=== PATIENT | female | born 1945 | race Caucasian/White ===

== ENCOUNTER 2018-08-03 22:11 | Emergency (ER) | payer MEDICARE, OTHER ==
[~2018-08-03] VITALS: Ht 165.1 cm; Wt 79.7 kg
[~2018-08-03 22:11] MED LIST: ASPI-496 PO; CEFD300C37 PO; CRESTOR; FURO20TA3 PO; FURO40SO5 PO; GABA-826 PO; GABA300C10 PO; GABAPENTIN; LACT1TAB13 PO; LISI30TA4 PO; LISINOPRIL; METHIMAZOLE; METO50TA6 PO; METOPROLOL; OXYC5CAP2 PO; OXYC5TAB2 PO; POTA99TA24 PO; ROSU40TA PO; [UNRECOGNIZED DRUG - OTHER]
[2018-08-03 23:13] LABS: BASOPHILS # (AUTO) 0.03 x10^3/uL (0-0.1); BASOPHILS % (AUTO) 0 % (0-1); EOSINOPHILS # (AUTO) 0.12 x10^3/uL (0-0.4); EOSINOPHILS % (AUTO) 2 % (1-7); LYMPHOCYTES # (AUTO) 1.25 x10^3/uL (1-3.4); LYMPHOCYTES % (AUTO) 16 % (22-44); MD NO; MEAN CORPUSCULAR HEMOGLOBIN 31.5 pg (27.0-34.8); MEAN CORPUSCULAR HGB CONC 33.8 g/dL (32.4-35.8); MEAN CORPUSCULAR VOLUME 93.4 fL (80-100); MEAN PLATELET VOLUME 8.1 fL (7.4-10.4); MONOCYTES # (AUTO) 0.58 x10^3/uL (0.2-0.8); MONOCYTES % (AUTO) 7 % (2-9); NEUTROPHILS # (AUTO) 6.08 x10^3/uL (1.8-6.8); NEUTROPHILS % (AUTO) 75 % (42-75); PLATELET COUNT 187 x10^3/uL (130-400); RED BLOOD COUNT 4.22 x10^6/uL (3.82-5.3); RED CELL DISTRIBUTION WIDTH 18.1 % (9.6-15.2)
[2018-08-03 23:17] LABS: ALBUMIN 3.1 g/dL (3.4-5.0); ANION GAP 10 mmol/L (5-15); CALCIUM 8.4 mg/dL (8.5-10.1); CHLORIDE 110 mmol/L (98-107); CREATININE 1.48 mg/dL (0.55-1.02)
--- NOTE | 2018-08-03 23:51 | NUR ---
WARM BLANKET PROVIDED, PT UP FOR RECHECK. REPORTS BEING READY TO GO HOME.
[2018-08-04 00:12] VITALS: BP 149/92
[2018-08-06] MEDS ORDERED: LISI-167 PO (14:10)
[2018-08-06] MEDS ORDERED: ACID1TAB7 PO (14:10)
== END 2018-08-04 00:15 | disposition home or self-care (01) ==
LOC: ED 22:57
DX: I10 Essential (primary) hypertension (principal); Z87.891 Personal history of nicotine dependence
CPT/HCPCS: 36415; 80048; 82040; 85025; 93005; 99284

== ENCOUNTER → 2018-09-21 | Outpatient (CLI) | payer MEDICARE ==
[~2018-09-21] MED LIST changes: +ACID1TAB7 PO; +AMLO2.5T5 PO; +ASPI-650 PO; +CARV6.2512 PO; +FERR324T5 PO; +HYDR25TA11 PO; +LISI-167 PO; +REGADENOSON 0.4 MG/5 ML SYRINGE ONE
== END | disposition home or self-care (01) ==
LOC: CFH 12:17
PROVIDERS: ATTEND Internal Medicine Cardiovascular Disease
DX: I25.10 Atherosclerotic heart disease of native coronary artery without angina pectoris (principal); I10 Essential (primary) hypertension; Z95.1 Presence of aortocoronary bypass graft
CPT/HCPCS: 78452; 93017; A9502; J2785

== ENCOUNTER 2019-10-29 09:39 | Outpatient (CLI) | payer MEDICARE ==
[~2019-10-29 09:39] MED LIST changes: +HYDR-826 PO; -HYDR25TA11 PO; -REGADENOSON 0.4 MG/5 ML SYRINGE ONE
== END 2019-10-29 23:59 | disposition home or self-care (01) ==
LOC: CVU 09:39
PROVIDERS: ATTEND Internal Medicine Cardiovascular Disease
DX: I65.23 Occlusion and stenosis of bilateral carotid arteries (principal); E78.2 Mixed hyperlipidemia; R09.89 Other specified symptoms and signs involving the circulatory and respiratory systems
CPT/HCPCS: 93880

== ENCOUNTER 2020-08-01 11:39 | Emergency (ER) | payer MEDICARE ==
[~2020-08-01] VITALS: Ht 160 cm; Wt 73.0 kg
[2020-08-01] MEDS ORDERED: LABETALOL 5MG/ML, 20ML ONE (11:46)
[2020-08-01] MEDS ORDERED: MIDAZOLAM 1 MG/ML, 2ML ONE (11:46)
[2020-08-01 11:56] LABS: BASOPHILS % (AUTO) 1 % (0-1); EOSINOPHILS % (AUTO) 1 % (1-7); LYMPHOCYTES % (AUTO) 12 % (22-44); MEAN CORPUSCULAR HEMOGLOBIN 32.9 pg (27.0-34.8); MEAN CORPUSCULAR HGB CONC 33.6 g/dL (32.4-35.8); MEAN PLATELET VOLUME 7.9 fL (7.4-10.4); MONOCYTES % (AUTO) 5 % (2-9); NEUTROPHILS % (AUTO) 82 % (42-75); PLATELET COUNT 150 x10^3/uL (130-400); RED BLOOD COUNT 5.31 x10^6/uL (3.82-5.3); RED CELL DISTRIBUTION WIDTH 13.9 % (9.6-15.2)
[2020-08-01 12:00] LABS: MD NO
[2020-08-01] MEDS ORDERED: LABETALOL 5MG/ML, 20ML IVPush ONE (12:00)
[2020-08-01 12:07] LABS: INTERNATIONAL NORMALIZED RATIO 1.01 (0.93-1.1); PROTHROMBIN TIME 10.7 Seconds (9.6-11.5)
--- NOTE | 2020-08-01 12:09 | NUR ---
intubated in field 7.5 19 at the teeth. 200 etomidate/ 4 mg versed / 200 mcg fentanyl by ems. not withdrawing/pupils 2 mm pinpoint/+ babinski bilat feet. afib on monitor 70-100s. to ct w/ rt. takes eliquis. as
[2020-08-01] MEDS ORDERED: VECURONIUM 10 MG ONE (12:20)
[2020-08-01] MEDS ORDERED: MIDAZOLAM 1 MG/ML, 2ML IVPush ONE (12:30)
[2020-08-01] MEDS ORDERED: VECURONIUM 10 MG IVPush ONE (12:30)
[2020-08-01] MEDS ORDERED: OMNIPAQUE 350 MG/ML, 100ML BOTTLE ONE (12:30)
--- NOTE | 2020-08-01 13:21 | NUR ---
ABENA SCHAFFER - [phone]
--- NOTE | 2020-08-01 13:24 | NUR ---
1220 2 MG VERSED 1225 20 MG LABETALOL 1231 10 MG VECURONIUM 1303 NICARDIPINE 2.5 MG/HR 1315 NICARDIPINE OFF.
--- NOTE | 2020-08-01 13:57 | NUR ---
REPORT TO ANGELINA LEAHY AT [facility].
--- NOTE | 2020-08-01 14:04 | NUR ---
20 @ [facility].
--- NOTE | 2020-08-01 14:14 | NUR ---
REPORT TO JORDY Green [facility].
[2020-08-01 14:20] VITALS: BP 175/112
--- NOTE | 2020-08-01 14:56 | NUR ---
MELANIE DAUGHTER [phone] UPDATED.
== END 2020-08-01 14:52 | disposition short-term general hospital (02) ==
LOC: ED 13:17
DX: I63.89 Other cerebral infarction (principal); I10 Essential (primary) hypertension; I48.92 Unspecified atrial flutter; I48.91 Unspecified atrial fibrillation; Z85.3 Personal history of malignant neoplasm of breast
CPT/HCPCS: 36415; 36600; 70450; 70496; 70498; 71045; 80047; 82803; 82962; 85025; 85610; 85730; 93005; 94002; 96365; 96375; 99291; J2250; J7050; Q9967